=== PATIENT | male | born 1955 | race Caucasian/White ===

== ENCOUNTER 2020-04-14 03:51 | Inpatient (IN) ==
[2020-04-14] MEDS ORDERED: Dexamethasone IV 4 MG/ML VIAL 1 ml VIAL PO ONE (04:16)
[2020-04-14] MEDS ORDERED: Dexamethasone IV 4 MG/ML VIAL 1 ml VIAL IV SLOW PU ONE (04:27)
[2020-04-14] MEDS ORDERED: Lidocaine 1% w EPI 1:200,000 SDV 30 ML VIAL ONE (06:39)
[2020-04-14] MEDS ORDERED: Midazolam 2 mg/2 ml VIAL 1 mg/ml 2 ml VIAL (2 mg) ONE ×2 (07:04→07:58)
[2020-04-14] MEDS ORDERED: Rocuronium 50 mg VIAL 10 mg/ml 5 ml VIAL (50 mg) ONE (07:04)
[2020-04-14] MEDS ORDERED: fentaNYL 100 mcg/2 ml 50 MCG/ML VIAL ONE (07:07)
[2020-04-14] MEDS ORDERED: Succinylcholine 200 mg VIAL 20 mg/ml 10 ml VIAL (200 mg) ONE (07:09)
[2020-04-14] MEDS ORDERED: Propofol 10 MG/ML 20 ML BTL ONE (07:09)
[2020-04-14] MEDS ORDERED: Dexamethasone IV 4 MG/ML VIAL 1 ml VIAL ONE (07:09)
[2020-04-14 09:51] LABS: BUN/Creatinine Ratio 19.4 (8-20); Blood Urea Nitrogen 13 mg/dL (6-24); CO2 Carbon Dioxide 33 mmol/L (22-32); Calcium 8.8 mg/dL (8.6-10.3); Chloride 95 mmol/L (101-111); EGFR African American 143.2 (>60); EGFR Non-African American 118.3 (>60); Glucose 124 mg/dL (70-100); Sodium 133 mmol/L (135-145)
[2020-04-14 10:11] LABS: ABS Lymphocytes 0.2 10^3/ul (1.0-4.8); ABS Monocytes 0.1 10^3/ul (0-0.8); ABS Neutrophils 3.3 10^3/ul (1.5-7.7); Eosinophil % 0.1 %; Hematocrit 29 % (42-52); Hemoglobin 9.3 g/dL (14.0-18.0); Lymphocyte % 5.1 %; Mean Corpuscular HGB Conc 32 g/dL (31-36); Mean Corpuscular Hemoglobin 19 pg (27-31); Mean Corpuscular Volume 59 fL (80-94); Nucleated Red Blood Cells % 0.1; Red Blood Count 4.89 10^6 /uL (4.18-5.48); Red Cell Distribution Width 19 % (10-15); White Blood Count 3.6 10^3/uL (3.5-10.8)
[2020-04-14 10:15] LABS: INR 1.13 (0.82-1.09)
[2020-04-14 10:25] LABS: Anion Gap 5 mmol/L (2-11)
[2020-04-14] MEDS ORDERED: LORazepam 2 mg VIAL 1 ml IV PUSH PRN ×2 (10:27→12:45)
[2020-04-14] MEDS ORDERED: Lorazepam PYXIS KEY PRN ×2 (10:27→12:45)
[2020-04-14 11:09] LABS: Platelet Count Platelets clumped. 10^3/uL (150-450)
[2020-04-14] MEDS ORDERED: fentaNYL 100 mcg/2 ml 50 MCG/ML VIAL IV ONE (11:15)
[2020-04-14] MEDS ORDERED: LORazepam 2 mg VIAL 1 ml ONE (12:47)
[2020-04-15] MEDS ORDERED: fentaNYL 100 mcg/2 ml 50 MCG/ML VIAL IV PRN (01:33)
[2020-04-15 05:37] LABS: ABS Lymphocytes 0.7 10^3/ul (1.0-4.8); ABS Monocytes 1.1 10^3/ul (0-0.8); ABS Neutrophils 5.6 10^3/ul (1.5-7.7); BUN/Creatinine Ratio 31.5 (8-20); Calcium 8.2 mg/dL (8.6-10.3); EGFR African American 183.6 (>60); EGFR Non-African American 151.8 (>60); Eosinophil % 0.2 %; Hematocrit 29 % (42-52); Hemoglobin 9.4 g/dL (14.0-18.0); Lymphocyte % 9.9 %; Mean Corpuscular HGB Conc 33 g/dL (31-36); Mean Corpuscular Hemoglobin 19 pg (27-31); Mean Corpuscular Volume 59 fL (80-94); Nucleated Red Blood Cells % 0.2; Phosphorus 5.8 mg/dL (2.5-5.0); Potassium 3.8 mmol/L (3.5-5.0); Red Blood Count 4.89 10^6 /uL (4.18-5.48); Red Cell Distribution Width 18 % (10-15); White Blood Count 7.4 10^3/uL (3.5-10.8)
[2020-04-15] MEDS ORDERED: Albuterol/Ipratropium NEB.SOL (2.5/0.5 MG) 3 ML NEB.SOLN INH ONE (07:40)
[2020-04-15 07:44] LABS: Platelet Count 150 10^3/uL (150-450)
[2020-04-15] MEDS: LORazepam 2 mg VIAL 1 ml IV PUSH PRN ×2 (10:39→16:20)
[2020-04-15] MEDS: Dexamethasone IV 4 MG/ML VIAL 1 ml VIAL IV SLOW PU SCH ×2 (11:39→17:54)
[2020-04-15] MEDS ORDERED: Enoxaparin 40 MG/0.4 ML SYR SUBCUT SCH (12:00)
[2020-04-15] MEDS ORDERED: Lidocaine 2% JELLY 6 ML TOPICAL ONE (13:01)
[2020-04-15] MEDS ORDERED: LIDOCAINE ONE (13:01)
[2020-04-15] MEDS ORDERED: Dexamethasone IV 4 MG/ML VIAL 1 ml VIAL IV SLOW PU SCH (14:00)
[2020-04-15] MEDS: Morphine 2 MG/ML SYRINGE IV PRN ×2 (16:20→22:25)
[2020-04-16] MEDS: Dexamethasone IV 4 MG/ML VIAL 1 ml VIAL IV SLOW PU SCH ×5 (00:31→23:24)
[2020-04-16 06:05] LABS: EGFR African American 245.4 (>60); EGFR Non-African American 202.8 (>60); Phosphorus 4.1 mg/dL (2.5-5.0); Potassium 3.9 mmol/L (3.5-5.0)
[2020-04-16] MEDS: Morphine 2 MG/ML SYRINGE IV PRN ×7 (06:16→23:21)
[2020-04-16 06:24] LABS: ABS Lymphocytes 0.2 10^3/ul (1.0-4.8); ABS Monocytes 0.7 10^3/ul (0-0.8); ABS Neutrophils 4.5 10^3/ul (1.5-7.7); Hematocrit 28 % (42-52); Hemoglobin 9.1 g/dL (14.0-18.0); Lymphocyte % 3.3 %; Mean Corpuscular HGB Conc 33 g/dL (31-36); Mean Corpuscular Hemoglobin 19 pg (27-31); Mean Corpuscular Volume 59 fL (80-94); Nucleated Red Blood Cells % 0.1; Red Blood Count 4.78 10^6 /uL (4.18-5.48); Red Cell Distribution Width 19 % (10-15); White Blood Count 5.4 10^3/uL (3.5-10.8)
[2020-04-16 09:40] LABS: Mean Platelet Volume 10.7 fL (7.4-10.4); Platelet Count 86 10^3/uL (150-450)
[2020-04-16 09:44] LABS: Microcytosis 3+
[2020-04-16] MEDS ORDERED: Gadoteridol (CONTRAST) 279.3 MG/ML 10 ML IV ONE (13:26)
[2020-04-16] MEDS: LORazepam 2 mg VIAL 1 ml IV PUSH PRN ×2 (18:27→22:01)
[2020-04-17] MEDS ORDERED: NS 0.9% 1000 ml BAG 1,000 ML IV SCH (05:00)
[2020-04-17] MEDS: Morphine 2 MG/ML SYRINGE IV PRN ×6 (05:20→20:01)
[2020-04-17] MEDS: Dexamethasone IV 4 MG/ML VIAL 1 ml VIAL IV SLOW PU SCH ×3 (05:25→17:49)
[2020-04-17 05:52] LABS: BUN/Creatinine Ratio 41.9 (8-20); Calcium 7.8 mg/dL (8.6-10.3); EGFR African American 238.8 (>60); EGFR Non-African American 197.4 (>60); Magnesium 2.2 mg/dL (1.9-2.7); Phosphorus 3.5 mg/dL (2.5-5.0)
[2020-04-17 06:13] LABS: ABS Lymphocytes 0.2 10^3/ul (1.0-4.8); ABS Monocytes 0.9 10^3/ul (0-0.8); ABS Neutrophils 5.5 10^3/ul (1.5-7.7); Hematocrit 28 % (42-52); Hemoglobin 9.1 g/dL (14.0-18.0); Lymphocyte % 3.2 %; Mean Corpuscular HGB Conc 33 g/dL (31-36); Mean Corpuscular Hemoglobin 19 pg (27-31); Mean Corpuscular Volume 59 fL (80-94); Mean Platelet Volume 10.8 fL (7.4-10.4); Nucleated Red Blood Cells % 0.1; Platelet Count 127 10^3/uL (150-450); Red Blood Count 4.69 10^6 /uL (4.18-5.48); Red Cell Distribution Width 18 % (10-15); White Blood Count 6.6 10^3/uL (3.5-10.8)
[2020-04-17] MEDS: LORazepam 2 mg VIAL 1 ml IV PUSH PRN ×4 (09:01→22:51)
[2020-04-18] MEDS: Dexamethasone IV 4 MG/ML VIAL 1 ml VIAL IV SLOW PU SCH ×4 (00:03→17:25)
[2020-04-18] MEDS: LORazepam 2 mg VIAL 1 ml IV PUSH PRN ×4 (04:21→19:37)
[2020-04-18] MEDS: Morphine 2 MG/ML SYRINGE IV PRN ×7 (04:21→22:12)
[2020-04-18 06:34] LABS: ABS Lymphocytes 0.2 10^3/ul (1.0-4.8); ABS Neutrophils 6.5 10^3/ul (1.5-7.7); Hematocrit 28 % (42-52); Hemoglobin 9.1 g/dL (14.0-18.0); Lymphocyte % 2.6 %; Mean Corpuscular HGB Conc 33 g/dL (31-36); Mean Corpuscular Hemoglobin 19 pg (27-31); Mean Corpuscular Volume 59 fL (80-94); Nucleated Red Blood Cells % 0.4; Red Cell Distribution Width 18 % (10-15); White Blood Count 7.7 10^3/uL (3.5-10.8)
[2020-04-18 06:36] LABS: BUN/Creatinine Ratio 41.5 (8-20); Calcium 7.7 mg/dL (8.6-10.3); EGFR African American 252.3 (>60); EGFR Non-African American 208.5 (>60); Potassium 4.1 mmol/L (3.5-5.0)
[2020-04-18 09:07] LABS: Mean Platelet Volume 10.8 fL (7.4-10.4); Platelet Count 95 10^3/uL (150-450)
[2020-04-19] MEDS: Dexamethasone IV 4 MG/ML VIAL 1 ml VIAL IV SLOW PU SCH ×3 (00:02→12:40)
[2020-04-19] MEDS: LORazepam 2 mg VIAL 1 ml IV PUSH PRN ×3 (00:22→10:11)
[2020-04-19] MEDS: Morphine 2 MG/ML SYRINGE IV PRN ×7 (00:22→23:03)
[2020-04-19] MEDS: Dexamethasone Oral Solution 1 MG/ML 10 ML UDC (10 MG) PEG TUBE SCH (18:19)
[2020-04-20] MEDS: Dexamethasone Oral Solution 1 MG/ML 10 ML UDC (10 MG) PEG TUBE SCH ×5 (00:24→19:51)
[2020-04-20] MEDS: LORazepam 2 mg VIAL 1 ml IV PUSH PRN ×5 (00:55→21:04)
[2020-04-20] MEDS: Morphine 2 MG/ML SYRINGE IV PRN ×8 (03:13→22:23)
[2020-04-20] MEDS ORDERED: Dexamethasone Oral Solution 1 MG/ML 10 ML UDC (10 MG) PEG TUBE SCH ×2 (09:00→14:00)
[2020-04-20 10:23] LABS: BUN/Creatinine Ratio 53.5 (8-20); EGFR African American 238.8 (>60); EGFR Non-African American 197.4 (>60); Potassium 4.1 mmol/L (3.5-5.0)
[2020-04-20 10:27] LABS: Hematocrit 28 % (42-52); Hemoglobin 9.2 g/dL (14.0-18.0); Mean Corpuscular HGB Conc 33 g/dL (31-36); Mean Corpuscular Hemoglobin 19 pg (27-31); Mean Corpuscular Volume 59 fL (80-94); Red Blood Count 4.79 10^6 /uL (4.18-5.48); Red Cell Distribution Width 18 % (10-15); White Blood Count 8.2 10^3/uL (3.5-10.8)
[2020-04-20 11:13] LABS: ABS Lymphocytes 0.1 10^3/ul (1.0-4.8); ABS Monocytes 0.5 10^3/ul (0-0.8); ABS Neutrophils 7.6 10^3/ul (1.5-7.7); Lymphocyte % 1.7 %; Nucleated Red Blood Cells % 0.3
[2020-04-20 12:02] LABS: Mean Platelet Volume 10.8 fL (7.4-10.4); Platelet Count 126 10^3/uL (150-450)
[2020-04-20] MEDS: Enoxaparin 40 MG/0.4 ML SYR SUBCUT SCH (14:44)
[2020-04-21] MEDS: Dexamethasone Oral Solution 1 MG/ML 10 ML UDC (10 MG) PEG TUBE SCH ×7 (00:04→23:55)
[2020-04-21] MEDS: Morphine 2 MG/ML SYRINGE IV PRN ×10 (00:32→22:10)
[2020-04-21] MEDS: LORazepam 2 mg VIAL 1 ml IV PUSH PRN ×6 (01:13→23:54)
[2020-04-21] MEDS: Enoxaparin 40 MG/0.4 ML SYR SUBCUT SCH (15:35)
[2020-04-22] MEDS: Morphine 2 MG/ML SYRINGE IV PRN ×5 (00:04→08:50)
[2020-04-22] MEDS: LORazepam 2 mg VIAL 1 ml IV PUSH PRN ×2 (04:05→08:51)
[2020-04-22] MEDS: Dexamethasone Oral Solution 1 MG/ML 10 ML UDC (10 MG) PEG TUBE SCH ×6 (04:06→23:50)
[2020-04-22] MEDS ORDERED: Morphine ORAL.SOLN 10 mg 2 mg/ml UDC 5 ml (10 mg) PO PRN (09:44)
[2020-04-22] MEDS ORDERED: Polyethylene Glycol 3350 17 GM PACKET PO PRN (10:23)
[2020-04-22] MEDS ORDERED: Docusate LIQ 100 MG/10 ML UDC PO PRN (10:26)
[2020-04-22] MEDS ORDERED: Magnesium Hydroxide LIQ 30 ML UDC PO PRN (10:26)
[2020-04-22] MEDS: Senna TAB 8.6 mg TAB PO SCH (12:40)
[2020-04-22] MEDS: Morphine ORAL.SOLN 10 mg 2 mg/ml UDC 5 ml (10 mg) PO PRN ×3 (12:40→23:43)
[2020-04-22] MEDS: Enoxaparin 40 MG/0.4 ML SYR SUBCUT SCH (15:42)
[2020-04-23] MEDS: Dexamethasone Oral Solution 1 MG/ML 10 ML UDC (10 MG) PEG TUBE SCH ×3 (04:09→12:57)
[2020-04-23] MEDS: Morphine ORAL.SOLN 10 mg 2 mg/ml UDC 5 ml (10 mg) PO PRN ×2 (05:42→12:56)
[2020-04-23] MEDS: Senna TAB 8.6 mg TAB PO SCH (09:46)
[2020-04-23 11:38] VITALS: BP 129/50
[2020-04-23] MEDS: Enoxaparin 40 MG/0.4 ML SYR SUBCUT SCH (13:04)
[2020-05-01 16:17] LABS: LNGPR Tissue ID S20-6869
== END 2020-04-23 15:15 | disposition home health service (06) | DRG 3 ==
LOC: ED 03:51 → ICU 08:26 → SSU 04-16 10:40
PROVIDERS: ADMIT Internal Medicine; ATTEND Internal Medicine

== ENCOUNTER 2020-04-24 10:27 | Observation (INO) ==
[2020-04-24] MEDS ORDERED: NS 0.9% 1000 ml BAG 1,000 ML IV ONE (14:38)
[2020-04-24] MEDS ORDERED: Piperacillin/Tazobac ADVAN 3.375 GM in NS 0.9% 100 ml BAG 100 ML IVPB ONE ×2 (16:03→16:15)
[2020-04-24] MEDS ORDERED: Magnesium Hydroxide LIQ 30 ML UDC PEG TUBE PRN (16:25)
[2020-04-24] MEDS ORDERED: Polyethylene Glycol 3350 17 GM PACKET PEG TUBE PRN (16:25)
[2020-04-24] MEDS ORDERED: Zosyn per Pharmacy NOTE FOLLOW UP SCH (17:00)
[2020-04-24] MEDS ORDERED: Morphine ORAL CONCENTRATE 5 MG/0.25 ML ORAL.SYRIN SL SCH (17:00)
[2020-04-24] MEDS: Dexamethasone Oral Solution 1 MG/ML 10 ML UDC (10 MG) PEG TUBE SCH (19:22)
[2020-04-24 19:43] LABS: Hematocrit 29 % (42-52); Hemoglobin 9.4 g/dL (14.0-18.0); Mean Corpuscular HGB Conc 33 g/dL (31-36); Mean Corpuscular Hemoglobin 19 pg (27-31); Mean Corpuscular Volume 58 fL (80-94); Red Cell Distribution Width 18 % (10-15); White Blood Count 13.9 10^3/uL (3.5-10.8)
[2020-04-24 19:54] LABS: BUN/Creatinine Ratio 51.2 (8-20); C Reactive Protein 82.02 mg/L (<8.01); Calcium 6.6 mg/dL (8.6-10.3); EGFR African American 252.3 (>60); EGFR Non-African American 208.5 (>60); Globulin 3.1 g/dL (2-4); Potassium 4.1 mmol/L (3.5-5.0); Total Bilirubin 0.8 mg/dL (0.2-1.0); Total Protein 6.1 g/dL (6.4-8.9)
[2020-04-24 20:23] LABS: ABS Monocytes 0.9 10^3/ul (0-0.8); ABS Neutrophils 12.2 10^3/ul (1.5-7.7); Eosinophil % 0.3 %; Lymphocyte % 6.9 %; Nucleated Red Blood Cells % 0.3
[2020-04-24] MEDS ORDERED: LORazepam 2 mg VIAL 1 ml IV PUSH PRN (20:25)
[2020-04-24] MEDS ORDERED: Lorazepam PYXIS KEY PRN (20:25)
[2020-04-24 20:28] LABS: Platelet Count 161 10^3/uL (150-450)
[2020-04-25] MEDS: ZOSYN 3.375 GM Q8H per EXTENDED INFUSION IV SCH ×3 (00:14→15:41)
[2020-04-25] MEDS: Dexamethasone Oral Solution 1 MG/ML 10 ML UDC (10 MG) PEG TUBE SCH ×4 (00:16→17:36)
[2020-04-25] MEDS: Morphine ORAL CONCENTRATE 5 MG/0.25 ML ORAL.SYRIN SL SCH ×3 (01:24→13:41)
[2020-04-25 05:21] LABS: Albumin 2.9 g/dL (3.2-5.2); BUN/Creatinine Ratio 45.7 (8-20); EGFR Non-African American 182.6 (>60); Globulin 2.9 g/dL (2-4); Potassium 4.2 mmol/L (3.5-5.0); Total Bilirubin 0.7 mg/dL (0.2-1.0); Total Protein 5.8 g/dL (6.4-8.9)
[2020-04-25 05:23] LABS: ABS Lymphocytes 0.2 10^3/ul (1.0-4.8); ABS Monocytes 0.7 10^3/ul (0-0.8); ABS Neutrophils 13.4 10^3/ul (1.5-7.7); Eosinophil % 0.1 %; Hematocrit 26 % (42-52); Hemoglobin 8.7 g/dL (14.0-18.0); Lymphocyte % 1.4 %; Mean Corpuscular HGB Conc 33 g/dL (31-36); Mean Corpuscular Hemoglobin 19 pg (27-31); Mean Corpuscular Volume 57 fL (80-94); Nucleated Red Blood Cells % 0.1; Red Blood Count 4.59 10^6 /uL (4.18-5.48); Red Cell Distribution Width 17 % (10-15); White Blood Count 14.3 10^3/uL (3.5-10.8)
[2020-04-25 05:31] LABS: Calcium 6.1 mg/dL (8.6-10.3)
[2020-04-25 07:08] LABS: Mean Platelet Volume 9.8 fL (7.4-10.4); Platelet Count 141 10^3/uL (150-450)
[2020-04-25] MEDS ORDERED: Calcium Gluconate 2 GM in NS 0.9% 100 ml BAG 100 ML IV ONE (07:15)
[2020-04-25] MEDS ORDERED: Calcium Gluconate 4 GM in NS 0.9% 250 ml 250 ML IVPB ONE (10:50)
[2020-04-25 15:10] VITALS: BP 116/56
== END 2020-04-25 18:26 | disposition home or self-care (01) ==
LOC: SSU 10:27 → ED 10:27 → SSU 18:20
PROVIDERS: ADMIT Internal Medicine; ATTEND Internal Medicine Hematology & Oncology